=== PATIENT | female | born 1975 | race Two or more races ===

== ENCOUNTER 2021-08-15 09:34 | Outpatient (CLI) | payer OTHER | END 2021-08-15 09:44 | disposition home or self-care (01) | LOC: RAD 09:34 | DX: M25.512 Pain in left shoulder (principal); M75.31 Calcific tendinitis of right shoulder; M75.32 Calcific tendinitis of left shoulder ==

== ENCOUNTER 2024-03-31 09:39 | Outpatient (CLI) | payer OTHER | END 2024-03-31 09:40 | disposition home or self-care (01) | LOC: SONOGRAMA 09:39 | DX: N83.00 Follicular cyst of ovary, unspecified side (principal) ==

== ENCOUNTER 2024-12-25 13:04 | Outpatient (CLI) | payer OTHER | END 2024-12-25 13:07 | disposition home or self-care (01) | LOC: MAMO-SONO 13:04 | DX: Z12.31 Encounter for screening mammogram for malignant neoplasm of breast (principal) ==

== ENCOUNTER 2025-01-08 12:15 | Outpatient (CLI) | payer OTHER | END 2025-01-08 12:17 | disposition home or self-care (01) | LOC: SONOGRAMA 12:15 | DX: R92.8 Other abnormal and inconclusive findings on diagnostic imaging of breast (principal); Z12.31 Encounter for screening mammogram for malignant neoplasm of breast ==